=== PATIENT | male | born 1945 | race Caucasian/White ===

== ENCOUNTER 2024-11-08 10:35 | Emergency (ER) | payer MEDICARE, SELFPAY ==
[2024-11-08 10:35] VITALS: BP 157/96; PULSE 77; RESP 14; TEMP 36.6; O2SAT 98; BMI 33.7
--- NOTE | 2024-11-08 11:18 | EDS_ITS ---
HPI <Dr. Merlene Lauren DO - Last Filed: 11/08/24 23:45> History of Present Illness Chief Complaint: Laceration Informant: patient Narrative Narrative: Patient 79-year-old male with history atrial fibrillation on Coumadin (INR 2.2 yesterday) presenting with left pinky finger injury. Patient is right-hand dominant. He states he was using a wood splitter when he excellently cut the distal aspect of his left fifth finger. She did not know he did it but is now started to have more pain. Denies difficulty moving his finger. No other complaints or concerns reported at this time Tetanus Immunization: 5-10 years [facility] <Dr. Merlene Lauren DO - Last Filed: 11/08/24 23:45> [facility] Medical History Afib Home Medications ?Medication ?Instructions ?Recorded ?Last Taken ?Type cephalexin 500 mg capsule 500 mg PO Q8H 5 days #14 CAP SULES 11/08/24 Unknown Rx hydrocodone-acetaminophen 5-325mg 1 tab PO Q6H PRN PRN Pain 3 days 11/08/24 Unknown Rx 5mg-325mg #12 TABLETS ondansetron 4 mg disintegrating 4 mg PO Q8H PRN PRN Na usea #10 tabs 11/08/24 Unknown Rx tablet Allergy/AdvReac Type Severity Reaction Status Date / Time No Known Allergies Allergy Verified 11/08/24 10:36 Social History Smoking Status: Never smoker ROS <Dr. Merlene Lauren, DO - Last Filed: 11/08/24 23:45> ROS ED Constitutional Constitutional ED: Denies chills or fever(s) Musculoskeletal Musculoskeletal: Reports other Details: left 5th finger pain and injury Integumentary Reports other Details: laceration to left 5th finger Neurologic Neurologic: Denies paresthesias or weakness Hematologic/Lymphatic Hematologic/Lymphatic: Reports easy bleeding, easy bruising and other Details: on Coumadin EXAM <Dr. Merlene Lauren DO - Last Filed: 11/08/24 23:45> Physical Exam Const Vital Signs: 11/08/24 10:35 Temperature 98 F Temperature Source Temporal Pulse Rate 77 Respiratory Rate 14 Blood Pressure 157/96 H Blood Pressure Mean 116 Pulse Ox 98 Oxygen Delivery Method Room Air Positive well nourished and well developed General Appearance ED: well developed and NAD HEENT normocephalic and atraumatic Resp normal respiratory effort Cardio regular rate and regular rhythm Extremity Extremity Narrative: Deformity/laceration of the section of the left fifth finger. Normal range of motion with flexion extension. Neuro moves all extremities, no focal motor deficits and no sensory deficits noted Skin Skin Narrative: Complex laceration to the distal aspect of the left finger with laceration through the nailbed and avulsion of the nail (still attached proximally. [facility] <Dr. Merlene Lauren DO - Last Filed: 11/08/24 23:45> [facility] Narrative Medical decision making narrative: Patient have a for laceration to his left pinky finger. Tetanus is up-to-date. Differential includes complex laceration, open fracture, tuft fracture and nail avulsion/nailbed laceration. He has normal range of motion so low suspicion for flexor or extensor tendon injury. No mallet deformity of the finger. X-ray obtained reviewed by myself does show distal phalanx fracture consistent with an open fractures left tuft fracture. Case is discussed with plastic surgery, Dr. Shrestha. He recommends nailbed repair, removal of the nail and will follow-up in the office on Tuesday. Patient started on empiric antibiotics to prevent osteomyelitis. See procedure note?repair with copious irrigation performed by Lavinia SILVESTRE. Procedures <NIRMALA Chavez - Last Filed: 11/08/24 14:20> Lacerations laceration: Length: 1.97 in Depth: Sub Q Shape: complex Prep: Chlorhexadine Laceration repair: Digital block, Irrigated, Lidocaine and Wound explored Comment: Laceration copiously irrigated with saline and cleaned with chlorhexidine. Ten 5-0 Ethilon sutures were placed in simple interrupted fashion to close the skin, the nailbed was repaired with 5-0 Vicryl sutures, there were 3 deep dermal sutures placed with 5-0 Vicryl sutures, the nail was then tacked back on with 5-0 Ethilon sutures. Discharge Plan Triage Chief Complaint: Laceration ED Midlevel Provider: Vivien Martins ED Provider: Merlene Lauren Dx/Rx/DC Orders Clinical Impression: Open fracture of phalanx of finger of left hand, Laceration of finger nail bed, intermission coordinator (current) use of anticoagulants Instructions: ED Fracture, Upper Extremity, ED Laceration Extremity Prescriptions: New hydrocodone-acetaminophen 5-325 mg tablet 1 tab PO Q6H PRN PRN (Reason: Pain) 3 Days Qty: 12 0RF ondansetron 4 mg tablet,disintegrating 4 mg PO Q8H PRN PRN (Reason: Nausea) Qty: 10 0RF cephalexin 500 mg capsule 500 mg PO Q8H 5 Days Qty: 14 0RF Primary Care Provider: Care Physician,No Primary Referrals: Juan Shrestha MD [Med Staff - Active Staff] - Care Physician,No Primary [Primary Care Provider] - Activity Restrictions/Additional Instructions: Follow-up with Dr. Shrestha on Tuesday. Call the office today to make an appointment. Let them know you are seen in the ER. Take antibiotics as prescribed. Take Tylenol or prescribed pain medication as needed. You might need to take a stool softener with the pain medication as it can cause constipation. If you develop worsening pain, redness or fevers please return to the emergency room for wound check. Print Language: Bangladeshi Disposition Disposition: Home, Self Care Discharge Date/Time: 11/08/24 14:09
--- NOTE | 2024-11-08 11:56 | RAD_ITS ---
PROCEDURE: FINGER(S) MIN 2 VIEWS 11/08/2024 REASON FOR EXAM: INJURY/PAIN TECHNIQUE: Left finger three views COMPARISON: None FINDINGS: There is a soft tissue defect with associated comminuted fracture of the distal phalanx of the left 5th digit consistent with incomplete amputation. There is no dislocation. Mineralization is normal. There is no visible atherosclerosis. RAD/Finger(s) Min 2 Views IMPRESSION: There is a soft tissue defect with associated comminuted fracture of the distal phalanx of the left 5th digit consistent with incomplete amputation. Reading Location: [facility]
[2024-11-08] MEDS: Lidocaine 1% (20 ml mdv) 20 ML Vial INFILT (13:04)
[2024-11-08 13:06] VITALS: BP 160/88; PULSE 87; RESP 16; O2SAT 97
== END 2024-11-08 14:09 | disposition home or self-care (01) ==
PROVIDERS: Emergency Provider Emergency Medicine; Visit Provider Emergency Medicine
DX: S62.607A Fracture of unspecified phalanx of left little finger, initial encounter for closed fracture (principal); W31.2XXA Contact with powered woodworking and forming machines, initial encounter; Z79.01 Long term (current) use of anticoagulants
CPT/HCPCS: 12001; 11750; 11760; 73140; 99284